=== PATIENT | male | born 1975 | race Caucasian/White ===

== ENCOUNTER → 2022-08-17 | Outpatient (CLI) | payer OTHER ==
[~2022-08-17] MED LIST: TRIA15CR48 TD
[2022-08-17 11:03] LABS: FREE T4 (FREE THYROXINE) 0.96 ng/dL (0.76-1.46); THYROID STIMULATING HORMONE 1.66 uIU/mL (0.36-3.74)
== END | disposition home or self-care (01) ==
LOC: MSR 10:07
PROVIDERS: ATTEND Chiropractor
DX: E03.9 Hypothyroidism, unspecified (principal); M84.30XA Stress fracture, unspecified site, initial encounter for fracture; X58.XXXA Exposure to other specified factors, initial encounter
CPT/HCPCS: 84439; 84443; 84481